=== PATIENT | female | born 1945 | race Two or more races ===

== ENCOUNTER 2018-01-31 12:08 | Emergency (ER) | payer MEDICARE, BC ==
[~2018-01-31] VITALS: Ht 160 cm; Wt 65.8 kg
[2018-01-31] MEDS ORDERED: LOSA50TA21 PO (12:16)
[2018-01-31] MEDS ORDERED: LEVO100T10 PO (12:16)
[2018-01-31] MEDS ORDERED: ONDANSETRON ODT 4 MG TAB.RAPDIS ONE (12:40)
[2018-01-31] MEDS ORDERED: ONDANSETRON ODT 4 MG TAB.RAPDIS SL ONE (12:45)
[2018-01-31] MEDS ORDERED: ONDANSETRON HCL 4 MG TABLET ONE (12:48)
[2018-01-31] MEDS ORDERED: IV NORMAL SALINE 1000 ML BAG IV ONE (13:15)
[2018-01-31] MEDS ORDERED: METOCLOPRAMIDE HCL 10 MG/2 ML VIAL IV ONE (13:15)
[2018-01-31] MEDS ORDERED: diphenhydrAMINE 50 MG/1 ML VIAL IV ONE (13:15)
[2018-01-31] MEDS ORDERED: diphenhydrAMINE 50 MG/1 ML VIAL ONE (13:23)
[2018-01-31] MEDS ORDERED: METOCLOPRAMIDE HCL 10 MG/2 ML VIAL ONE (13:24)
[2018-01-31] MEDS ORDERED: diphenhydrAMINE 50 MG/1 ML VIAL IM ONE (13:30)
[2018-01-31] MEDS ORDERED: METOCLOPRAMIDE HCL 10 MG/2 ML VIAL IM ONE (13:30)
--- NOTE | 2018-01-31 13:56 | NUR ---
Patient discharged to home in stable conditon. Written and verbal after care instructions given. Patient verbalizes understanding of instructions.
== END 2018-01-31 13:57 | disposition home or self-care (01) ==
LOC: ER 12:08
DX: S39.92XA Unspecified injury of lower back, initial encounter (principal); I10 Essential (primary) hypertension; E03.9 Hypothyroidism, unspecified; Z88.5 Allergy status to narcotic agent; W01.0XXA Fall on same level from slipping, tripping and stumbling without subsequent striking against object, initial encounter; Y93.89 Activity, other specified; Y92.89 Other specified places as the place of occurrence of the external cause; Y99.8 Other external cause status
CPT/HCPCS: 72192; A4663; J1200; J2765; Q0162

== ENCOUNTER 2020-11-23 14:04 | Emergency (ER) | payer MEDICARE, BC ==
[~2020-11-23] VITALS: Ht 160 cm; Wt 61.2 kg
[~2020-11-23 14:04] MED LIST: LEVO100T10 PO; LOSA50TA39 PO
--- NOTE | 2020-11-23 16:17 | NUR ---
Patient discharged to home in stable condition. Written and verbal after care instructions given. Patient verbalizes understanding of instructions. Stressed follow up or return to ER for worsening s/s.
== END 2020-11-23 16:18 | disposition home or self-care (01) ==
LOC: ER 14:04
DX: S09.90XA Unspecified injury of head, initial encounter (principal); W10.8XXA Fall (on) (from) other stairs and steps, initial encounter; Y92.018 Other place in single-family (private) house as the place of occurrence of the external cause; I10 Essential (primary) hypertension; E03.9 Hypothyroidism, unspecified; Z88.5 Allergy status to narcotic agent; I67.2 Cerebral atherosclerosis; Z79.899 Other long term (current) drug therapy
CPT/HCPCS: 70450; A4663

== ENCOUNTER 2021-10-05 13:22 | Emergency (ER) | payer MEDICARE, BC ==
[~2021-10-05] VITALS: Ht 160 cm; Wt 61.2 kg
[2021-10-05] MEDS ORDERED: IPRATROPIUM BROMIDE 0.5 MG/2.5 ML NEBU NEB ONE (13:45)
[2021-10-05] MEDS ORDERED: ALBUTEROL SULFATE 2.5 MG/3 ML NEBU NEB ONE (13:45)
[2021-10-05] MEDS ORDERED: ALBUTEROL SULFATE 2.5 MG/3 ML NEBU ONE (13:48)
[2021-10-05] MEDS ORDERED: IPRATROPIUM BROMIDE 0.5 MG/2.5 ML NEBU ONE (13:48)
--- NOTE | 2021-10-05 13:59 | NUR ---
PT IS IN ROOM #1B. DR VÁSQUEZ EVALUATED THE PT.
[2021-10-05 14:01] LABS: HEMATOCRIT 41.7 % (31.2-41.9); MEAN CORPUSCULAR HEMOGLOBIN 30.5 uug (24.7-32.8); MEAN CORPUSCULAR VOLUME 90.2 fL (75.5-95.3); PLATELET COUNT (AUTO) 280 K/uL (179-408)
[2021-10-05 14:45] LABS: CREATININE 0.7 mg/dL (0.6-1.3); POTASSIUM 4.5 mmol/L (3.5-5.1)
[2021-10-05 14:57] LABS: BILIRUBIN,DIRECT 0.1 mg/dL (0.0-0.2); BILIRUBIN,TOTAL 0.4 mg/dL (0.2-1.0); TOTAL PROTEIN, SERUM 7.3 g/dL (6.4-8.2)
[2021-10-05 15:08] LABS: THYROID STIMULATING HORMONE 0.279 mIU/mL (0.358-3.740)
[2021-10-05] MEDS ORDERED: ALBU18HF2 INH (15:16)
== END 2021-10-05 16:30 | disposition home or self-care (01) ==
LOC: ER 13:24
DX: R06.2 Wheezing (principal); I10 Essential (primary) hypertension; E03.9 Hypothyroidism, unspecified; Z79.890 Hormone replacement therapy; Z79.899 Other long term (current) drug therapy
CPT/HCPCS: 36415; 71045; 84443; 85025; 93005; A4663; J3590

== ENCOUNTER 2022-08-31 15:16 | Emergency (ER) | payer MEDICARE, BC ==
[~2022-08-31] VITALS: Ht 160 cm; Wt 65.8 kg
[~2022-08-31 15:16] MED LIST changes: +ALBU18HF2 INH
[2022-08-31] MEDS ORDERED: LOVA20TA2 PO (15:36)
[2022-08-31] MEDS ORDERED: METHOCARBAMOL 500 MG TABLET PO ONE (16:45)
[2022-08-31] MEDS ORDERED: METHOCARBAMOL 500 MG TABLET ONE (16:49)
--- NOTE | 2022-08-31 17:00 | NUR ---
see and examined by MD Dunaway
[2022-08-31] MEDS ORDERED: METH-807 PO (17:30)
[2022-08-31 18:35] VITALS: BP 120/80
== END 2022-08-31 18:35 | disposition home or self-care (01) ==
LOC: ER 15:16
DX: M79.10 Myalgia, unspecified site (principal); M79.662 Pain in left lower leg; M54.50 Low back pain, unspecified; I10 Essential (primary) hypertension; E03.9 Hypothyroidism, unspecified; E78.5 Hyperlipidemia, unspecified; Z88.5 Allergy status to narcotic agent; Z79.899 Other long term (current) drug therapy
CPT/HCPCS: 72110; A4663